=== PATIENT | female | born 1940 | race Caucasian/White ===

== ENCOUNTER 2016-11-23 14:33 | Outpatient (CLI) | payer OTHER ==
--- NOTE | 2016-11-23 15:16 | DIAGNOSTIC IMAGING REPORT ---
PROCEDURE: XR WRIST MIN 3 VIEWS - RIGHT INDICATION: JOINT PAIN TECHNIQUE: Four views of the right wrist. COMPARISON: 12/02/2015 FINDINGS: Scattered periarticular demineralization in the second through fourth digits and diffuse demineralization of the fifth ray. There has been partial excision of the scaphoid with residual rounded ossicle in the expected location of the distal portion. There is complete collapse at the radiocarpal articulation and fusion of the intercarpal row. Severe degenerative sclerosis, subcortical cystic change, and osseous remodelling at the radiocarpal articulation and severe degeneration of the distal radial ulnar joint. Dystrophic calcification seen dorsal, unchanged. Mild soft tissue swelling. IMPRESSION: 1. Chronic severe joint space loss with reactive sclerosis, subcortical cystic change, and osseous fusion of the radiocarpal and intercarpal articulations. 2. Surgically absent proximal scaphoid. 3. Osteopenia. 4. No significant progression compared to the prior study.
== END 2016-11-23 23:00 | disposition home or self-care (01) ==
LOC: XR SRH 14:33
DX: M19.031 Primary osteoarthritis, right wrist (principal); M25.831 Other specified joint disorders, right wrist; M85.80 Other specified disorders of bone density and structure, unspecified site